=== PATIENT | male | born 1955 | race Caucasian/White ===

== ENCOUNTER 2019-07-13 15:27 | Inpatient (IN) | payer OTHER ==
[2019-07-13 15:45] LABS: ADD MAN DIFF? NO
[2019-07-13 15:49] LABS: BASOPHIL # 0.1 10^3/ul (0.0-0.1); BASOPHILS % 0.9 % (0.0-2.0); EOSINOPHILS # 0.3 10^3/ul (0.0-0.5); EOSINOPHILS % 3.1 % (0.0-7.0); HEMATOCRIT 47.2 % (42.0-52.0); HEMOGLOBIN 15.5 g/dl (14.0-18.0); LYMPHOCYTES # 3.7 10^3/ul (0.8-2.9); LYMPHOCYTES % 39.5 % (15.0-51.0); MEAN CORPUSCULAR HEMOGLOBIN 28.7 pg (29.0-33.0); MEAN CORPUSCULAR HGB CONC 32.8 g/dl (32.0-37.0); MEAN CORPUSCULAR VOLUME 87.4 fl (82.0-101.0); MEAN PLATELET VOLUME 9.4 fl (7.4-10.4); MONOCYTES % 10.5 % (0.0-11.0); NEUTROPHIL # 4.2 10^3/ul (1.6-7.5); NEUTROPHILS % 45.2 % (39.0-77.0); PLATELET COUNT 276 10^3/UL (140-415); RED CELL DISTRIBUTION WIDTH 13.5 % (11.5-14.5)
[2019-07-13 15:49] LABS: WHITE BLOOD COUNT 9.3 10^3/ul (4.8-10.8)
[2019-07-13 16:12] LABS: ANION GAP 11 (5-13); BLOOD UREA NITROGEN 16 mg/dl (7-20); CALCIUM 10.2 mg/dl (8.4-10.2); CARBON DIOXIDE 27 mmol/L (21-31); CHLORIDE 102 mmol/L (97-110); CHOLESTEROL 233 mg/dl (100-200); CREATININE 0.63 mg/dl (0.61-1.24); Estimated GFR > 60 mL/min (>60); GLUCOSE 95 mg/dl (70-220); HDL CHOLESTEROL 77 mg/dl (30-78); LDL CHOLESTEROL,CALCULATED 122 mg/dl; SODIUM 140 mmol/L (135-144); TRIGLYCERIDES 172 mg/dl (0-149)
[2019-07-13 16:13] LABS: INR 0.93; PROTIME 12.6 Sec (11.9-14.9)
[2019-07-13 16:14] LABS: PARTIAL THROMBOPLASTIN TIME 26.8 Sec (23.0-35.0)
[2019-07-13 16:23] LABS: TROPONIN-I < 0.012 ng/ml (0.000-0.120)
[2019-07-13 16:56] LABS: HEMOGLOBIN A1C 7.9 % (0-5.9)
[2019-07-13] MEDS ORDERED: ACETAMINOPHEN 325 MG TAB PO ×2 (18:00→19:00)
[2019-07-13] MEDS ORDERED: ONDANSETRON 4 MG INJ IV ×2 (18:00→19:00)
[2019-07-13] MEDS: ASPIRIN 325 MG TAB PO (18:08)
[2019-07-13] MEDS ORDERED: MAGNESIUM HYDROXIDE 30ML CUP PO (19:00)
[2019-07-13] MEDS ORDERED: ALBUTEROL/IPRATROPIUM (NEB) 3 ML AMP HHN (19:00)
[2019-07-13] MEDS ORDERED: LORAZEPAM 2 MG INJ IV (19:00)
[2019-07-13] MEDS ORDERED: HYDROCODONE/APAP (5/325) TAB PO (19:00)
[2019-07-13] MEDS ORDERED: NITROGLYCERIN (SL) 0.4 MG TAB SL (19:00)
[2019-07-13] MEDS ORDERED: morphine 2 MG INJ IV (19:00)
[2019-07-13] MEDS ORDERED: NACL 0.9% 3 ML SYG IV (19:00)
[2019-07-13] MEDS ORDERED: hydrALAzine 20 MG INJ IV (19:00)
[2019-07-13] MEDS ORDERED: DOCUSATE SODIUM 100 MG CAP PO (19:00)
[2019-07-13 19:26] LABS: FREE T4 (FREE THYROXINE) 0.94 ng/dl (0.78-2.44)
[2019-07-13] MEDS ORDERED: DEXTROSE 50% 50 ML SYRINGE IV ×2 (19:30)
[2019-07-13] MEDS ORDERED: GLUCOSE GEL 15 GRAM TUBE PO ×2 (19:30)
[2019-07-13] MEDS ORDERED: GLUCOSE GEL 15 GRAM TUBE BUCCAL (19:30)
[2019-07-13] MEDS ORDERED: GLUCAGON 1 MG INJ IM (19:30)
[2019-07-13] MEDS: INSULIN ASPART [NOVOLOG] 3 ML PEN SC (21:00)
[2019-07-13] MEDS: ATORVASTATIN 80 MG TAB PO (21:20)
[2019-07-13] MEDS: SOD CHLORIDE 0.45% 1,000 ML IV (21:21)
[2019-07-13] MEDS: HEPARIN 5,000 UNIT/1 ML VIAL SC (21:41)
[2019-07-14] MEDS: ACCUCHECK AT 2AM (Patients on SS coverage) XX (02:00)
[2019-07-14] MEDS ORDERED: ACCU-CHEK XX (02:00)
[2019-07-14 06:50] LABS: ADD MAN DIFF? NO
[2019-07-14 06:57] LABS: WHITE BLOOD COUNT 7.3 10^3/ul (4.8-10.8)
[2019-07-14 06:57] LABS: BASOPHIL # 0.1 10^3/ul (0.0-0.1); BASOPHILS % 1.1 % (0.0-2.0); EOSINOPHILS # 0.4 10^3/ul (0.0-0.5); EOSINOPHILS % 5.3 % (0.0-7.0); HEMATOCRIT 44.5 % (42.0-52.0); HEMOGLOBIN 14.5 g/dl (14.0-18.0); LYMPHOCYTES # 2.5 10^3/ul (0.8-2.9); LYMPHOCYTES % 34.2 % (15.0-51.0); MEAN CORPUSCULAR HEMOGLOBIN 28.9 pg (29.0-33.0); MEAN CORPUSCULAR HGB CONC 32.6 g/dl (32.0-37.0); MEAN CORPUSCULAR VOLUME 88.6 fl (82.0-101.0); MEAN PLATELET VOLUME 9.6 fl (7.4-10.4); MONOCYTE # 0.7 10^3/ul (0.3-0.9); MONOCYTES % 9.1 % (0.0-11.0); NEUTROPHIL # 3.6 10^3/ul (1.6-7.5); NEUTROPHILS % 49.8 % (39.0-77.0); PLATELET COUNT 239 10^3/UL (140-415); RED BLOOD COUNT 5.02 10^6/ul (4.70-6.10); RED CELL DISTRIBUTION WIDTH 13.5 % (11.5-14.5)
[2019-07-14 07:13] LABS: HEMOGLOBIN A1C 7.5 % (0-5.9)
[2019-07-14] MEDS: Insulin NOVOLOG SS MILD Algorithm (SS with meals and bedtime) SC ×4 (07:25→20:07)
[2019-07-14] MEDS ORDERED: INSULIN ASPART [NOVOLOG] 3 ML PEN SC (07:25)
[2019-07-14 07:26] LABS: CHOLESTEROL 207 mg/dl (100-200)
[2019-07-14 07:26] LABS: CHOL/HDL RATIO 3.2 RATIO; HDL CHOLESTEROL 63 mg/dl (30-78); LDL CHOLESTEROL,CALCULATED 108 mg/dl; TRIGLYCERIDES 178 mg/dl (0-149)
[2019-07-14 07:28] LABS: ANION GAP 6 (5-13); BLOOD UREA NITROGEN 16 mg/dl (7-20); CALCIUM 9.6 mg/dl (8.4-10.2); CARBON DIOXIDE 30 mmol/L (21-31); CHLORIDE 103 mmol/L (97-110); CREATININE 0.67 mg/dl (0.61-1.24); Estimated GFR > 60 mL/min (>60); GLUCOSE 125 mg/dl (70-220); MAGNESIUM 1.7 mg/dl (1.7-2.5); PHOSPHORUS 3.8 mg/dl (2.5-4.9); POTASSIUM 4.2 mmol/L (3.5-5.1); SODIUM 139 mmol/L (135-144)
[2019-07-14] MEDS: ASPIRIN (EC) 325 MG TAB PO (08:31)
[2019-07-14] MEDS: HEPARIN 5,000 UNIT/1 ML VIAL SC ×2 (08:34→20:31)
[2019-07-14 08:36] LABS: ERYTHROCYTE SEDIMENTATION RATE 4 mm/Hr (0-20)
[2019-07-14] MEDS: SOD CHLORIDE 0.45% 1,000 ML IV ×2 (10:57→23:14)
[2019-07-14 15:22] LABS: RAPID PLASMA REAGIN NONREACTIVE (NR)
[2019-07-14 15:50] LABS: ADD UMIC NO; UR ASCORBIC ACID NEGATIVE (NEGATIVE); UR BILIRUBIN (Dip) NEGATIVE (NEGATIVE); UR BLOOD (Dip) NEGATIVE (NEGATIVE); UR CLARITY CLEAR (CLEAR); UR COLOR STRAW (YELLOW); UR GLUCOSE (Dip) NEGATIVE (NEGATIVE); UR KETONES (Dip) NEGATIVE (NEGATIVE); UR LEUKOCYTE ESTERASE (Dip) NEGATIVE Leu/ul (NEGATIVE); UR NITRITE (Dip) NEGATIVE (NEGATIVE); UR SPECIFIC GRAVITY (Dip) 1.005 (1.003-1.030); UR TOTAL PROTEIN (Dip) NEGATIVE (NEGATIVE); UR UROBILINOGEN (Dip) NEGATIVE (NEGATIVE)
[2019-07-14 16:09] LABS: AMPHETAMINE/METHAMPHETAMINE Negative (NEGATIVE); BARBITURATES Negative (NEGATIVE); BENZODIAZEPINES Negative (NEGATIVE); CANNABINOIDS Negative (NEGATIVE); COCAINE Negative (NEGATIVE); OPIATES Negative (NEGATIVE)
[2019-07-14] MEDS: ATORVASTATIN 80 MG TAB PO (20:08)
[2019-07-15] MEDS: ACCUCHECK AT 2AM (Patients on SS coverage) XX (02:00)
[2019-07-15 06:15] LABS: ADD MAN DIFF? NO
[2019-07-15 06:21] LABS: BASOPHIL # 0.1 10^3/ul (0.0-0.1); BASOPHILS % 1.2 % (0.0-2.0); EOSINOPHILS # 0.4 10^3/ul (0.0-0.5); EOSINOPHILS % 5.3 % (0.0-7.0); HEMATOCRIT 45.6 % (42.0-52.0); HEMOGLOBIN 14.7 g/dl (14.0-18.0); LYMPHOCYTES # 2.5 10^3/ul (0.8-2.9); LYMPHOCYTES % 37.2 % (15.0-51.0); MEAN CORPUSCULAR HEMOGLOBIN 28.4 pg (29.0-33.0); MEAN CORPUSCULAR HGB CONC 32.2 g/dl (32.0-37.0); MEAN CORPUSCULAR VOLUME 88.2 fl (82.0-101.0); MEAN PLATELET VOLUME 9.7 fl (7.4-10.4); MONOCYTE # 0.6 10^3/ul (0.3-0.9); MONOCYTES % 9.2 % (0.0-11.0); NEUTROPHIL # 3.1 10^3/ul (1.6-7.5); NEUTROPHILS % 46.5 % (39.0-77.0); PLATELET COUNT 242 10^3/UL (140-415); RED BLOOD COUNT 5.17 10^6/ul (4.70-6.10); RED CELL DISTRIBUTION WIDTH 13.6 % (11.5-14.5)
[2019-07-15 06:21] LABS: WHITE BLOOD COUNT 6.7 10^3/ul (4.8-10.8)
[2019-07-15 06:44] LABS: ANION GAP 6 (5-13); BLOOD UREA NITROGEN 16 mg/dl (7-20); CALCIUM 9.6 mg/dl (8.4-10.2); CARBON DIOXIDE 26 mmol/L (21-31); CHLORIDE 105 mmol/L (97-110); CREATININE 0.58 mg/dl (0.61-1.24); Estimated GFR > 60 mL/min (>60); GLUCOSE 158 mg/dl (70-220); POTASSIUM 4.9 mmol/L (3.5-5.1); SODIUM 137 mmol/L (135-144)
[2019-07-15] MEDS: Insulin NOVOLOG SS MILD Algorithm (SS with meals and bedtime) SC ×2 (07:25→11:20)
[2019-07-15] MEDS: ASPIRIN (EC) 325 MG TAB PO (08:22)
[2019-07-15] MEDS: HEPARIN 5,000 UNIT/1 ML VIAL SC (08:26)
[2019-07-15] MEDS: AMLODIPINE 2.5 MG TAB PO (12:56)
[2019-07-15] MEDS: SOD CHLORIDE 0.45% 1,000 ML IV (13:00)
== END 2019-07-15 16:35 | disposition home or self-care (01) | DRG 66 ==
LOC: E/R 15:27 → TEL 17:56
PROVIDERS: Hospitalist
DX: I63.9 Cerebral infarction, unspecified (principal); E11.9 Type 2 diabetes mellitus without complications; R29.810 Facial weakness; R47.81 Slurred speech; I10 Essential (primary) hypertension; E78.5 Hyperlipidemia, unspecified; F17.210 Nicotine dependence, cigarettes, uncomplicated; Z79.4 Long term (current) use of insulin; Z79.82 Long term (current) use of aspirin
CPT/HCPCS: 36415; 70450; 70551; 71045; 80048; 80061; 80307; 81003; 82962; 83036; 83735; 84100; 84439; 84443; 84484; 85025; 85610; 85651; 85730; 86592; 92523; 92610; 93005; 93306; 93880; 97161; 97166; 99285-25